=== PATIENT | female | born 1980 | race Caucasian/White ===

== ENCOUNTER 2016-09-20 23:06 | Inpatient (IN) | payer MEDICAID, OTHER ==
--- NOTE | 2016-09-20 23:10 | ED Physician Chart ---
Chief Complaint/HPI - Patient Information Date Seen:: 09/20/16 Time Seen:: 23:09 Chief Complaint:: abdominal pain History of Present Illness:: 36-year-old female, otherwise healthy complains of acute, constant, worsening, severe, 10 out of 10, cramping and sharp, radiating to the back, epigastric and upper abdominal pain since about 11 AM this morning. Said pain started off as burning sensation is now moved to sharp and cramping. Has associated nausea but no vomiting. Allergies:: Allergies Allergy/AdvReac Type Severity Reaction Status Date / Time MDX No Known Allergies - Nka Allergy Verified 06/22/14 22:35 [No Known Allergies - Nka] Historian:: Patient Review:: Nurse's Note Reviewed Review of Systems - Review of Systems Other: Complete system review otherwise unremarkable except as noted in history of present illness. Past Medical History - Past Medical History Past Medical History: No significant medical hx Family History: None Social History: Non Smoker, No Alcohol, No Drug Use, Employed Surgical History: Appendectomy, Psychiatricy History: None Medication: None Family Medical History - Family Member Mother Ethnicity: Living Status: Still Living Hx Family Cancer: No Hx Family Coronary Artery Disease: No Hx Family Congestive Heart Failure: No Hx Family Hypertension: Yes Hx Family Stroke: No Hx Family Diabetes: No Hx Family Seizures: No Hx Family Dementia: No Hx Family AIDS: No Hx Family HIV: No Hx Family COPD: No Hx Family Hepatitis: No Hx Family Psychiatric Problems: No Hx Family Tuberculosis: No Physical Exam - Physical Examination Other:: INITIAL VITAL SIGNS: Reviewed by me GENERAL: Alert and interactive. Moderate distress due to pain HEAD: Head is normocephalic and atraumatic EYES: EOMI. PERRL. No scleral icterus. No conjunctival injection ENT: Moist mucous membranes. NECK: Supple. No masses. Full range of motion RESPIRATORY: No tachypnea. Clear breath sounds bilaterally. No wheezing, rales, or rhonchi CV: Regular rate and rhythm. No murmurs, rubs, or gallops ABDOMEN: Soft, non-distended, tenderness to palpation of the epigastric area with positive Brooks's sign. Guarding on deep palpation. No rebound. No masses. EXTREMITIES: No deformity. No cyanosis. No edema. SKIN: Warm and dry. No obvious rashes. NEUROLOGIC: Alert and oriented. Face is symmetric. Speech is normal. Moves all extremities equally. Motor and sensory distally intact. Labs/Radiology/EKG Results - Lab Results Results: Lab Results 09/20/16 09/20/16 09/20/16 Range/Units 00:00 00:00 23:40 WBC 18.6 H D (4.8-10.8) Th/cmm RBC 5.07 (3.80-5.10) Mil/cmm Hgb 15.1 D (11.7-15.5) gm/dL Hct 43.3 D (35.0-45.0) % MCV 85.4 (81-100) fl MCH 29.9 (27.0-31.0) pg MCHC Differential 34.9 (28.0-36.0) pg RDW 12.4 (11.5-20.0) % Plt Count 303 D (150-400) Th/cmm MPV 7.7 fl Neutrophils % 84.4 H (40.0-80.0) % Lymphocytes % 11.3 L (20.0-50.0) % Monocytes % 3.8 (2.0-10.0) % Eosinophils % 0.5 (0.0-5.0) % Basophils % 0.0 (0.0-2.0) % Sodium (136-145) mEq/L Potassium (3.5-5.1) mEq/L Chloride (98-107) mEq/L Carbon Dioxide (21.0-31.0) mEq/L Anion Gap (7.0-16.0) BUN (7-25) mg/dL Creatinine (0.6-1.2) mg/dL Est GFR ( Amer) (>90) ml/min Est GFR (Non-Af Amer) ml/min BUN/Creatinine Ratio Glucose (70-105) mg/dL Whole Bld Lactic Acid (0.60-1.99) mmol/L Calcium (8.6-10.3) mg/dL Total Bilirubin (0.3-1.0) mg/dL AST (13-39) U/L ALT (7-52) U/L Alkaline Phosphatase (34-104) U/L Total Protein (6.0-8.3) gm/dL Albumin (3.7-5.3) gm/dL Globulin gm/dL Albumin/Globulin Ratio (1.0-1.8) Amylase (29-103) U/L Lipase (11-82) U/L Urine Source CLEAN C Urine Color YELLOW Urine Clarity CLEAR (CLEAR) Urine pH 7.5 Ur Specific [place] 1.015 (1.005-1.030) Urine Protein NEGATIVE (NEGATIVE) mg/dL Urine Glucose (UA) NEGATIVE (NEGATIVE) mg/dL Urine Ketones NEGATIVE (NEGATIVE) mg/dL Urine Blood SMALL H (NEGATIVE) Urine Nitrate NEGATIVE (NEGATIVE) Urine Bilirubin NEGATIVE (NEGATIVE) Urine Urobilinogen 0.2 (0.2 - 1.0) E.U./dL Ur Leukocyte Esterase NEGATIVE (NEGATIVE) Urine RBC 2-5 (0-5) /hpf Urine WBC 0-2 (0-5) /hpf Ur Epithelial Cells FEW (FEW) /lpf Urine Bacteria OCCASIONAL (NONE SEEN) /hpf Urine Test NEGATIVE 09/20/16 09/20/16 Range/Units 23:40 23:40 WBC (4.8-10.8) Th/cmm RBC (3.80-5.10) Mil/cmm Hgb (11.7-15.5) gm/dL Hct (35.0-45.0) % MCV (81-100) fl MCH (27.0-31.0) pg MCHC Differential (28.0-36.0) pg RDW (11.5-20.0) % Plt Count (150-400) Th/cmm MPV fl Neutrophils % (40.0-80.0) % Lymphocytes % (20.0-50.0) % Monocytes % (2.0-10.0) % Eosinophils % (0.0-5.0) % Basophils % (0.0-2.0) % Sodium 136 (136-145) mEq/L Potassium 3.7 (3.5-5.1) mEq/L Chloride 103 (98-107) mEq/L Carbon Dioxide 26.7 (21.0-31.0) mEq/L Anion Gap 10.0 (7.0-16.0) BUN 10 (7-25) mg/dL Creatinine 0.9 (0.6-1.2) mg/dL Est GFR ( Amer) > 60.0 (>90) ml/min Est GFR (Non-Af Amer) > 60.0 ml/min BUN/Creatinine Ratio 11.1 Glucose 121 H (70-105) mg/dL Whole Bld Lactic Acid 1.48 (0.60-1.99) mmol/L Calcium 9.8 (8.6-10.3) mg/dL Total Bilirubin 0.6 (0.3-1.0) mg/dL AST 18 (13-39) U/L ALT 17 (7-52) U/L Alkaline Phosphatase 72 (34-104) U/L Total Protein 8.4 H (6.0-8.3) gm/dL Albumin 4.6 (3.7-5.3) gm/dL Globulin 3.8 gm/dL Albumin/Globulin Ratio 1.2 (1.0-1.8) Amylase 51 (29-103) U/L Lipase 37 (11-82) U/L Urine Source Urine Color Urine Clarity (CLEAR) Urine pH Ur Specific [place] (1.005-1.030) Urine Protein (NEGATIVE) mg/dL Urine Glucose (UA) (NEGATIVE) mg/dL Urine Ketones (NEGATIVE) mg/dL Urine Blood (NEGATIVE) Urine Nitrate (NEGATIVE) Urine Bilirubin (NEGATIVE) Urine Urobilinogen (0.2 - 1.0) E.U./dL Ur Leukocyte Esterase (NEGATIVE) Urine RBC (0-5) /hpf Urine WBC (0-5) /hpf Ur Epithelial Cells (FEW) /lpf Urine Bacteria (NONE SEEN) /hpf Urine Test - Radiology Results Results: Ultrasound abdomen present report per radiology Enlarged mobile stones and agrees with diffuse tenderness over the gallbladder Gallbladder wall 0.51 cm; thickened CT scan abdomen and pelvis preliminary report per radiology Gallstones - EKG Interpretations Comments:: 12-lead EKG Interpretation by Song Yan MD: Sinus tachycardia with ventricular rate of 117 beats per minute Normal axis Normal intervals No acute ST or T wave changes. No obvious STEMI ED Septic Shock - . Is Septic Shock (SBP<90, OR Lactate>4 mmol\L) present?: No Reassessment (Disposition) - Reassessment Reassessment:: Patient appears to have acute abdominal pain due to acute cholecystitis. Thickened gallbladder wall on ultrasound. Leukocytosis of 18.6. IV Zosyn. Also gave IV antiemetics IV analgesics and IV fluids. Discussed case with the admitting physician who will admit the patient for workup and treatment. Reassessment Condition:: Improved - Diagnosis Diagnosis:: Acute abdominal pain due to acute cholecystitis - Patient Disposition Discharge/Transfer:: Acute Care w/in this hosp Admitted to:: Med/Surg Admitting Medical Physician:: Demetrius Valencia Time:: 01:00 Condition at Disposition:: Stable
[2016-09-20] MEDS ORDERED: Sodium Chloride 0.9% 1,000 ML IV ONE ×2 (23:21→23:48)
[2016-09-20] MEDS ORDERED: Donnatal Liq 5 ML UDC PO ONE (23:21)
[2016-09-20] MEDS ORDERED: Maalox 30 mL Cup PO ONE (23:21)
[2016-09-20] MEDS ORDERED: Prochlorperazine 5 mg/mL 2mL Vial IVP STA (23:22)
[2016-09-20] MEDS ORDERED: Maalox 30 mL Cup ONE (23:48)
[2016-09-20] MEDS ORDERED: Prochlorperazine 5 mg/mL 2mL Vial ONE (23:48)
[2016-09-20] MEDS ORDERED: Donnatal Liq 5 ML UDC ONE (23:50)
[2016-09-21 00:04] LABS: % EOSINOPHILS 0.5 % (0.0-5.0); % LYMPHOCYTES 11.3 % (20.0-50.0); % MONOCYTES 3.8 % (2.0-10.0); % NEUTROPHILS 84.4 % (40.0-80.0); MEAN CELL VOLUME 85.4 fl (81-100); MEAN CORPUSCULAR HEMOGLOBIN 29.9 pg (27.0-31.0); MEAN CORPUSCULAR HGB CONC 34.9 pg (28.0-36.0); MEAN PLATELET VOLUME 7.7 fl; NEUTROPHILE ABSOLUTE 15.7 Th/cmm (1.8-8.0); RED BLOOD COUNT 5.07 Mil/cmm (3.80-5.10); RED CELL DISTRIBUTION WIDTH 12.4 % (11.5-20.0)
[2016-09-21 00:10] LABS: WHITE BLOOD COUNT 18.6 Th/cmm (4.8-10.8)
[2016-09-21 00:20] LABS: ALB/GLOB RATIO 1.2 (1.0-1.8); ALKALINE PHOSPHATASE 72 U/L (34-104); AMYLASE SERUM 51 U/L (29-103); BILIRUBIN,TOTAL 0.6 mg/dL (0.3-1.0); BUN - UREA NITROGEN 10 mg/dL (7-25); BUN/CREATININE RATIO 11.1; CALCIUM SERUM 9.8 mg/dL (8.6-10.3); CARBON DIOXIDE 26.7 mEq/L (21.0-31.0); CHLORIDE 103 mEq/L (98-107); CREATININE - SERUM 0.9 mg/dL (0.6-1.2); GLUCOSE 121 mg/dL (70-105); LIPASE 37 U/L (11-82); POTASSIUM SERUM 3.7 mEq/L (3.5-5.1); SGOT 18 U/L (13-39); SGPT/ALT 17 U/L (7-52); SODIUM SERUM 136 mEq/L (136-145)
[2016-09-21 00:26] LABS: URINE BILIRUBIN NEGATIVE (NEGATIVE); URINE BLOOD SMALL (NEGATIVE); URINE COLOR YELLOW; URINE GLUCOSE (UA) NEGATIVE (NEGATIVE); URINE KETONE NEGATIVE (NEGATIVE); URINE PH 7.5; URINE PROTEIN NEGATIVE (NEGATIVE)
[2016-09-21 00:27] LABS: URINE BACTERIA OCCASIONAL /hpf (NONE SEEN); URINE EPITHELIAL CELLS FEW /lpf (FEW); URINE UROBILINOGEN 0.2 E.U./dL (0.2 - 1.0); URINE WBC 0-2 /hpf (0-5)
[2016-09-21 00:42] LABS: HEMATOCRIT 43.3 % (35.0-45.0); HEMOGLOBIN 15.1 gm/dL (11.7-15.5)
[2016-09-21 00:43] LABS: PLATELET COUNT 303 Th/cmm (150-400)
[2016-09-21] MEDS ORDERED: Morphine Sulfate 4 mg/mL 1mL Syr IVP STA (00:51)
[2016-09-21] MEDS ORDERED: Morphine Sulfate 4 mg/mL 1mL Syr ONE (00:54)
--- NOTE | 2016-09-21 02:29 | Admit Criteria Form ---
Admit Criteria Forms - Admit Criteria Diagnosis: ABDOMINAL PAIN Clinical Indications for Admission to Inpatient Care (Place 'X' for any and all applicable criteria): Admission is indicated for ANY ONE of the following(1)(2)(3)(4)(5): [X ]I. Inpatient admission required rather than observation care (Also use Abdominal Pain: Observation Care, as appropriate) because of ANY ONE of the following: [ ]a) Severe pain requiring acute inpatient management [X ]b) Identification of etiology/finding that requires inpatient care (eg, aortic dissection, free air) [ ]c) Absent bowel sounds with complete ileus(6) [ ]d) Suspected toxic megacolon [ ]e) Severe electrolyte abnormalities requiring inpatient care [ ]f) High fever or infection requiring inpatient admission as indicated by ANY ONE of following(7)(8): [ ] i) Appropriate outpatient or observational care antimicrobial treatment unavailable, not effective, or not feasible [ ] ii) Documented bacteremia [ ] iii) Temperature > 104.9 degrees F (oral) [ ] iv) T >103.1 F (oral) or < 96.8 F(rectal) that does not respond to all emergency treatment measures [ ]g) Signs of intestinal obstruction [B] [ ]h) Hemodynamic instability [ ]i) IV fluid to replace significant ongoing losses (greater than 3 L/m2 per day) (12)(13) [ ]j) Percutaneous or open drainage (eg, abscess, biliary tract ) procedures [ ]k) Parenteral nutrition regimen that must be implemented on inpatient basis [ ]l) Other condition,treatment or monitoring requiring inpatient admission. [ ]II. Peritoneal signs present [ ]III. Surgery needed that cannot be performed on an ambulatory basis. [ ]IV. Evaluation requires patient to not eat or drink for extended period ( eg, more than 24 hours). [ ]V. Contraindications and/or Inappropriate clinical situations for Observational Care in patients with abdominal pain, when ANY ONE of the following is required: [ ]a) Thorough evaluation is required to prevent catastrophic events due to delays in diagnosing (e.g.Mesenteric ischemia) 1,3 [ ]b) Patient with severe pathology or with chronic symptoms unlikely to improve in the ED stay (3) [ ]. General contraindications and/or Inappropriate clinical situations for Observational Care in patients with abdominal pain, when ANY ONE of the following is required: [ ]a) Prediction of prolongation of LOS based on ANY ONE of the following may be considered as a contraindication for observational care 2, 3, 4, 5, 6, 7, 8, 9, 10, 11 [ ]i) Age > 65 yrs. [ ]ii) Patient arriving by ambulance [ ]iii) Patient with high acuity [ ]iv) Patient requiring vital sign monitoring [ ]v) Patient on IV medication [ ]b) Systolic blood pressures 180mmHg 3,12 [ ]c) Patient with altered mental status including delirium and other alteration of consciousness, (3) [ ]d) Patient whose discharge disposition will be to a [facility] home or rehabilitation home should not be managed in Emergency Department Observation Unit. CMS rule requires 3 days hospital stay before such placement.3,13 [ ]e) Patient with failure to thrive due to broad array of etiologies 3,16,17 [ ]f) Inability to ambulate 3,14 Extended stay beyond goal length of stay may be needed for(2)(3): [ ]a) Persistent abdominal pain with suspected intra-abdominal process [ ]b) Diagnosed condition requiring continued stay (e.g., pancreatitis, complicated diverticulitis) [ ]c) Surgery (e.g., colectomy) The original [facility] [employer] content created by [email or web address] has been revised. The portions of the content which have been revised are identified through the use of italic text or in bold, and [facility] has neither reviewed nor approved the modified material.All other unmodified content is copyright [facility]. Please see references footnoted in the original [facility] edition 2016 Admit Criteria Met?: Yes
[2016-09-21] MEDS: D5-0.45NS 1,000 ML IV SCH (03:26)
[2016-09-21 04:23] VITALS: BP 112/69
[2016-09-21] MEDS: Ampicillin Sodium/Sulbactam 3 GM in Sodium Chloride 0.9% 100 ML IV SCH ×4 (05:51→23:58)
[2016-09-21] MEDS: HYDROmorphone 2 mg/mL 1mL Vial IVP PRN ×3 (08:08→20:40)
--- NOTE | 2016-09-21 10:11 | Diagnostic Imaging Report ---
CHEST X-RAY: AP view INDICATION: Shortness of breath COMPARISON: 10/10/2014 FINDINGS: There is no focal consolidation or pleural effusions The heart is normal in size. The osseous structures demonstrate no acute abnormalities. IMPRESSION: No acute cardiopulmonary disease.
[2016-09-21 10:25] LABS: INR 1.02 (0.5-1.4); PROTHROMBIN TIME (TEST) 10.6 SECONDS (9.5-11.5)
[2016-09-21] MEDS ORDERED: Influenza Vaccine 0.5 mL Syr IM ONE (10:29)
[2016-09-21] MEDS ORDERED: Pneumococcal Vaccine 0.5 mL Vial IM ONE (10:29)
--- NOTE | 2016-09-21 10:44 | Diagnostic Imaging Report ---
CT abdomen and pelvis without intravenous contrast Indication: Epigastric pain Comparison: Right upper quadrant ultrasound performed the same day, Technique: Axial images were obtained from the lung bases to the bilateral proximal femurs without IV contrast. Coronal reconstructions were made. total DLP: 627, CTDI12.3 FINDINGS: Hypoventilatory changes of the lung bases are noted. Assessment of solid organs is limited due to lack of IV contrast. The liver is mildly prominent with fatty infiltration. No evidence of focal lesions. The gallbladder is contracted. No focal splenic, pancreatic or adrenal lesions. No evidence of hydronephrosis or nephrolithiasis. Prominent endometrial cavity is noted. Moderate stool is seen throughout the colon. Appendix is not well-visualized. A small fat-containing umbilical hernia is noted. The osseous structures demonstrate no acute abnormalities. There may be mild spinal scoliosis. IMPRESSION: Contracted gallbladder limiting its evaluation. Please refer to ultrasound the same day for further findings Moderate stool throughout the colon. Appendix is not visualized, however, there are no secondary signs to suggest acute process. Prominent endometrial cavity. Please correlate with menstrual cycle. Consider short-term follow-up ultrasound Small fat-containing umbilical hernia. Mild hepatomegaly with hepatic steatosis.
--- NOTE | 2016-09-21 10:46 | Diagnostic Imaging Report ---
Right upper quadrant ultrasound, limited History: Epigastric pain Comparison: Prior abdominal ultrasound on 10/10/2014 Technique: Sonography right upper quadrant was performed in multiple planes. Findings: The liver is enlarged measuring 21.3 cm. The liver demonstrates increased echogenicity. The liver margins are not well-defined, however, no obvious focal lesions. Multiple gallstones are seen with gallbladder wall thickening measuring up to 5 mm. The common bile duct measures 5.5 mm. IMPRESSION: Multiple gallstones and gallbladder wall thickening. Please correlate clinically. If there is clinical concern for acute cholecystitis, follow-up exam such as nuclear medicine HIDA scan may be obtained for further assessment. The common bile duct measures 5.5 mm. Hepatomegaly with fatty infiltration.
[2016-09-21] MEDS ORDERED: Bupivacaine 0.5% W/Ep 10 mL Vial ONE ×4 (14:21→14:22)
[2016-09-21] MEDS ORDERED: Midazolam 1mg/ml 2 ml vial IV ONE (14:44)
[2016-09-21] MEDS ORDERED: Meperidine 50 mg/mL 1mL Syr ONE (14:45)
[2016-09-21] MEDS ORDERED: Neostigmine 10mg/10mL Vial ONE (15:23)
--- NOTE | 2016-09-21 15:49 | Consultation ---
REFERRING PHYSICIAN: Dr. Valencia. REASON FOR CONSULTATION: Gallstones. Thank you for referring this patient to me. HISTORY OF PRESENT ILLNESS: This is a 36-year-old female started complaining of severe abdominal pain with nausea and vomiting in the last 24 hours. Pain is epigastric, radiating to the back. PAST MEDICAL HISTORY: Otherwise unremarkable except for the fact that the patient had and appendectomy in the past. ALLERGIES: She has no allergies. MEDICATIONS: She does not take any medication on a regular basis. LABORATORY STUDIES: Showed WBC at 18,600. Chemistry is within normal limits. CT scan of the abdomen shows gallstones as well as on ultrasound. PHYSICAL EXAMINATION: Scar from previous surgery and tenderness in the right upper quadrant. PLAN: We will take to surgery. An informed consent discussed with the patient, the and parents. Complications were discussed likewise. JOB# [id number]
[2016-09-21] MEDS ORDERED: Meperidine 25 mg/mL 1mL Syr IVP PRN (15:55)
[2016-09-21] MEDS ORDERED: Lactated Ringer 1,000 ML IV SCH (16:00)
--- NOTE | 2016-09-21 17:31 | History & Physical ---
PATIENT IDENTIFICATION: The patient is a 36-year-old female. CHIEF COMPLAINT: Abdominal pain. HISTORY OF PRESENT ILLNESS: A 36-year-old [place] female with no significant past medical history, presented to Emergency Room with acute onset of 10/10 upper abdominal pain radiating to the back and associated nausea, but no vomiting. The patient stated her pain was initially burning sensation and now turned to the sharp and cramping. PAST MEDICAL HISTORY: None. MEDICATIONS AT HOME: None. ALLERGIES: None. SOCIAL HISTORY: The patient is a nonsmoker, nonalcohol. The patient is currently employed. FAMILY MEDICAL HISTORY: Remarkable for diabetes. REVIEW OF SYSTEMS: The patient currently denies any headache, blurred vision, double vision, dysphagia, odynophagia, runny nose, stuffy nose, fever, chills. No history of any chest pain, cough, no history of any hematemesis. No history of any hematuria, hematochezia, melena. No seizure or syncopal episode. PHYSICAL EXAMINATION: GENERAL: The patient is alert, awake, oriented, lying in the bed without any acute distress. VITAL SIGNS: Temperature 98.9, pulse is 95, respiratory rate 18, blood pressure 117/71. SKIN: Warm to touch. HEENT: Normocephalic, atraumatic. Extraocular muscles are intact. Tongue was pink and coated. NECK: Supple, no JVD, no hepatojugular reflux. No lymphadenopathy, thyromegaly or carotid bruit. HEART: Both heart sounds are regular. No S3, no S4, no murmur. CHEST: Lung equal in expansion, no wheezing, no crackles. ABDOMEN: Soft. Significant tenderness in the epigastric area noted. Bowel sounds present. No palpable mass. EXTREMITIES: No edema, no cyanosis. NEUROLOGIC: Nonfocal. AVAILABLE DIAGNOSTIC DATA: CT scan remarkable for contracted gallbladder with moderate amount of stool throughout the colon noted. Appendix was not visualized. Abdominal ultrasound is consistent with multiple gallstones and gallbladder wall thickening consistent with acute cholecystitis, common bile duct was 5.5 mm with hepatomegaly and fatty infiltration was reported. Chest x-ray with no infiltrate, no congestion. White count of 18.6, hemoglobin 15.1, platelet count 303. PT and PTT are normal. BUN and creatinine is normal. Glucose of 121. Urinalysis negative. CLINICAL IMPRESSION: 1. Acute cholecystitis and cholelithiasis. 2. Obesity. PLAN: 1. Admit this patient to Med/Surg floor. 2. Keep n.p.o. 3. IV fluid. 4. IV antibiotic. 5. Pain management. 6. GI and General Surgery consultation. 7. Proton pump inhibitor. 8. Symptoms management. 9. Follow lab. 10. Follow consult recommendation. 11. Care plan reviewed and discussed with staff. JOB# [id number]
--- NOTE | 2016-09-21 21:10 | Operative Report ---
PREOPERATIVE DIAGNOSIS: Acute calculous cholecystitis. POSTOPERATIVE DIAGNOSIS: Acute calculous cholecystitis. OPERATION DONE: Laparoscopic cholecystectomy. SURGEON: Jaron Mccormick M.D. ANESTHESIA: General anesthesia. ANESTHESIOLOGIST: Ilene Crabtree M.D. ESTIMATED BLOOD LOSS: 10 mL. OPERATIVE FINDINGS: Inflamed gallbladder. The anatomy was well delineated. PREVIOUS SURGERY: and appendectomy. Informed consent discussed with the patient and family prior to surgery and including possible complications. DESCRIPTION OF PROCEDURE: The patient was given general anesthesia. The abdomen was prepped with ChloraPrep and draped in appropriate manner. An infraumbilical incision was made along the skin line. A Veress needle was inserted. Insufflation of CO2 was carried successfully. A 10-mm trocar was placed through this endoscope was introduced. There was good visualization of the intra-abdominal cavity. Another 10-mm trocar was placed in the upper abdomen at the midline and two 5-mm trocars were placed in the right flank. The operating table was elevated to head and turned to the left side. The fundus and infundibulum of the gallbladder was grasped and blunt dissection was carried out with well identification of the cystic duct structures. Cystic duct was clipped 3 times close to the common duct and once to the gallbladder infundibulum and transected. The cystic artery was next identified, clipped and divided. Cautery dissection was carried out superiorly until the gallbladder was finally removed. This was removed in Endobag. Irrigation with saline solution was carried out and there was good hemostasis. All fluid and air was aspirated. Incision was closed with coni following infiltration with 0.5% Marcaine. JOB# [id number]
[2016-09-22] MEDS: HYDROmorphone 2 mg/mL 1mL Vial IVP PRN (00:10)
--- NOTE | 2016-09-22 02:06 | Consultation ---
INPATIENT GASTROINTESTINAL CONSULTATION REFERRING PHYSICIAN: Dr. Valencia. REASON FOR CONSULTATION: Gallstones. HISTORY OF PRESENT ILLNESS: This is a 36-year-old female who developed 1-day onset of right upper quadrant pain associated with nausea, but no vomiting, denies diarrhea or constipation, therefore came to the hospital and was found to have gallstones. PAST MEDICAL HISTORY: None. PAST SURGICAL HISTORY: Appendectomy and . FAMILY HISTORY: Noncontributory. SOCIAL HISTORY: Denies tobacco, alcohol, or IV drug usage. ALLERGIES: None. CURRENT MEDICATIONS: Tylenol, ampicillin, Dilaudid, Zofran, and Protonix. REVIEW OF SYSTEMS: A 10-point review of systems was performed. The pertinent positive is right upper quadrant pain and nausea. All other systems were otherwise negative. PHYSICAL EXAMINATION: VITAL SIGNS: Temperature 100.2, breathing 19, pulse of 131, blood pressure 100/62, and satting 94%. GENERAL: In no apparent distress. HEENT: EYES: Anicteric, normal conjunctivae. Head is normocephalic and atraumatic. Moist mucous membranes. NECK: Soft, supple. CHEST: Clear effort. CARDIOVASCULAR: Regular rate and rhythm. ABDOMEN: Soft, nondistended, tender right upper quadrant. No rebound or guarding. SKIN: Warm and dry. EXTREMITIES: Reveal no cyanosis. PSYCHOLOGIC: Alert and oriented x 3. LABORATORY DATA: Show white count , hemoglobin 15.1, and platelets of 303,000. INR is 1.02. Total bilirubin 0.6, AST 18, ALT 17, alkaline phosphatase 72. Lipase is 37. test was negative. Abdominal ultrasound showed multiple gallstones within the gallbladder wall thickening, common bile duct measured 5.[address] abdomen and pelvis showed a contracted gallbladder. IMPRESSION: This is a 36-year-old female with gallstones, normal LFTs, likely has symptomatic gallstones or even cholecystitis, no signs of cholestasis by laboratory testing. PLAN: 1. Consider HIDA scan. 2. Cholecystectomy per Surgeon. 3. Continue antibiotics and supportive care. Thank you for allowing me to participate. Please call me if any questions. JOB# [id number]
[2016-09-22] MEDS: Ampicillin Sodium/Sulbactam 3 GM in Sodium Chloride 0.9% 100 ML IV SCH ×2 (05:18→11:39)
[2016-09-22 07:16] LABS: MEAN CELL VOLUME 87.1 fl (81-100); MEAN CORPUSCULAR HEMOGLOBIN 29.5 pg (27.0-31.0); MEAN CORPUSCULAR HGB CONC 33.9 pg (28.0-36.0); MEAN PLATELET VOLUME 7.8 fl; PLATELET COUNT 282 Th/cmm (150-400); RED BLOOD COUNT 4.44 Mil/cmm (3.80-5.10); RED CELL DISTRIBUTION WIDTH 12.7 % (11.5-20.0)
[2016-09-22 07:29] LABS: ALKALINE PHOSPHATASE 66 U/L (34-104); ANION GAP 8.2 (7.0-16.0); BILIRUBIN,DIRECT 0.18 mg/dL (0.0-0.2); BILIRUBIN,TOTAL 0.7 mg/dL (0.3-1.0); BUN - UREA NITROGEN 6 mg/dL (7-25); BUN/CREATININE RATIO 8.6; CARBON DIOXIDE 29.8 mEq/L (21.0-31.0); CHLORIDE 96 mEq/L (98-107); CREATININE - SERUM 0.7 mg/dL (0.6-1.2); GLUCOSE 117 mg/dL (70-105); SGOT 32 U/L (13-39); SGPT/ALT 24 U/L (7-52); SODIUM SERUM 130 mEq/L (136-145)
[2016-09-22 08:19] LABS: HEMATOCRIT 38.6 % (35.0-45.0); HEMOGLOBIN 13.1 gm/dL (11.7-15.5); WHITE BLOOD COUNT 21.7 Th/cmm (4.8-10.8)
[2016-09-22 08:44] LABS: BAND NEUTROPHILE 8 % (0-10); NEUTROPHILS 82 % (40-80); TOTAL CELLS COUNTED 100
[2016-09-22 08:45] LABS: PLATELET ESTIMATE ADEQUATE (NORMAL); PLATELET MORPHOLOGY PLATELET CLUMPS SEEN (NORMAL)
--- NOTE | 2016-09-22 11:15 | General Progress Note ---
Subjective - Review of Systems Events since last encounter: has leukocytosis and low grade fever LFT normal complains of pain and nausea Objective - Results Result Diagrams: 09/22/16 06:10 09/22/16 06:10 Recent Labs: Laboratory Last Values WBC 21.7 Th/cmm (4.8-10.8) H* 09/22/16 06:10 RBC 4.44 Mil/cmm (3.80-5.10) 09/22/16 06:10 Hgb 13.1 gm/dL (11.7-15.5) D 09/22/16 06:10 Hct 38.6 % (35.0-45.0) D 09/22/16 06:10 MCV 87.1 fl (81-100) 09/22/16 06:10 MCH 29.5 pg (27.0-31.0) 09/22/16 06:10 MCHC Differential 33.9 pg (28.0-36.0) 09/22/16 06:10 RDW 12.7 % (11.5-20.0) 09/22/16 06:10 Plt Count 282 Th/cmm (150-400) 09/22/16 06:10 MPV 7.8 fl 09/22/16 06:10 Neutrophils % 84.4 % (40.0-80.0) H 09/20/16 23:40 Band Neutrophils % 8 % (0-10) 09/22/16 06:10 Lymphocytes % 11.3 % (20.0-50.0) L 09/20/16 23:40 Monocytes % 3.8 % (2.0-10.0) 09/20/16 23:40 Eosinophils % 0.5 % (0.0-5.0) 09/20/16 23:40 Basophils % 0.0 % (0.0-2.0) 09/20/16 23:40 Neutrophils (Manual) 82 % (40-80) H 09/22/16 06:10 Lymphocytes 5 % (20-50) L 09/22/16 06:10 Monocytes 5 % (2-10) 09/22/16 06:10 Platelet Estimate ADEQUATE (NORMAL) 09/22/16 06:10 Platelet Morphology PLATELET CLUMPS SEEN (NORMAL) 09/22/16 06:10 RBC Morph Micro Appear NORMAL (NORMAL) 09/22/16 06:10 PT 10.6 SECONDS (9.5-11.5) 09/21/16 09:55 INR 1.02 (0.5-1.4) 09/21/16 09:55 PTT (Actin FS) 23.8 SECONDS (26.0-38.0) L 09/21/16 09:55 Sodium 130 mEq/L (136-145) L 09/22/16 06:10 Potassium 4.0 mEq/L (3.5-5.1) 09/22/16 06:10 Chloride 96 mEq/L (98-107) L 09/22/16 06:10 Carbon Dioxide 29.8 mEq/L (21.0-31.0) 09/22/16 06:10 Anion Gap 8.2 (7.0-16.0) 09/22/16 06:10 BUN 6 mg/dL (7-25) L 09/22/16 06:10 Creatinine 0.7 mg/dL (0.6-1.2) 09/22/16 06:10 Est GFR ( Amer) > 60.0 ml/min (>90) 09/22/16 06:10 Est GFR (Non-Af Amer) > 60.0 ml/min 09/22/16 06:10 BUN/Creatinine Ratio 8.6 09/22/16 06:10 Glucose 117 mg/dL (70-105) H 09/22/16 06:10 Whole Bld Lactic Acid 1.48 mmol/L (0.60-1.99) 09/20/16 23:40 Calcium 9.0 mg/dL (8.6-10.3) 09/22/16 06:10 Total Bilirubin 0.7 mg/dL (0.3-1.0) 09/22/16 06:10 Direct Bilirubin 0.18 mg/dL (0.0-0.2) 09/22/16 06:10 AST 32 U/L (13-39) 09/22/16 06:10 ALT 24 U/L (7-52) 09/22/16 06:10 Alkaline Phosphatase 66 U/L (34-104) 09/22/16 06:10 Total Protein 7.7 gm/dL (6.0-8.3) 09/22/16 06:10 Albumin 3.9 gm/dL (3.7-5.3) 09/22/16 06:10 Globulin 3.8 gm/dL 09/22/16 06:10 Albumin/Globulin Ratio 1.0 (1.0-1.8) 09/22/16 06:10 Amylase 51 U/L (29-103) 09/20/16 23:40 Lipase 37 U/L (11-82) 09/20/16 23:40 Serum , Qual NEGATIVE (NEGATIVE) 09/20/16 23:40 Urine Source CLEAN C 09/20/16 00:00 Urine Color YELLOW 09/20/16 00:00 Urine Clarity CLEAR (CLEAR) 09/20/16 00:00 Urine pH 7.5 09/20/16 00:00 Ur Specific [place] 1.015 (1.005-1.030) 09/20/16 00:00 Urine Protein NEGATIVE mg/dL (NEGATIVE) 09/20/16 00:00 Urine Glucose (UA) NEGATIVE mg/dL (NEGATIVE) 09/20/16 00:00 Urine Ketones NEGATIVE mg/dL (NEGATIVE) 09/20/16 00:00 Urine Blood SMALL (NEGATIVE) H 09/20/16 00:00 Urine Nitrate NEGATIVE (NEGATIVE) 09/20/16 00:00 Urine Bilirubin NEGATIVE (NEGATIVE) 09/20/16 00:00 Urine Urobilinogen 0.2 E.U./dL (0.2 - 1.0) 09/20/16 00:00 Ur Leukocyte Esterase NEGATIVE (NEGATIVE) 09/20/16 00:00 Urine RBC 2-5 /hpf (0-5) 09/20/16 00:00 Urine WBC 0-2 /hpf (0-5) 09/20/16 00:00 Ur Epithelial Cells FEW /lpf (FEW) 09/20/16 00:00 Urine Bacteria OCCASIONAL /hpf (NONE SEEN) 09/20/16 00:00 Urine Test NEGATIVE 09/20/16 00:00 - Physical Exam Vitals and I&O: Vital Signs Temp 101.3 F 09/22/16 08:00 Pulse 129 09/22/16 08:00 Resp 19 09/22/16 08:00 BP 113/67 09/22/16 08:00 Pulse Ox 97 09/22/16 08:00 Intake & Output 09/21/16 09/22/16 09/22/16 18:59 06:59 18:59 Intake Total 920 100 Balance 920 100 Intake: Intake, IV Amount 200 100 Ampicillin Sodium/ 200 100 Sulbactam 3 gm In Sodium Chloride 0.9% 100 ml @ 100 mls/hr IV Q6HR [facility] Rx #:[id number] Oral 720 Other: # Voids 3 # Bowel Movements 0 Stool Characteristics Soft Soft Soft Formed Formed Formed Active Medications: Current Medications Acetaminophen (Tylenol) 650 mg PO Q6H PRN PRN Reason: Pain (Mild) Stop: 11/21/16 05:53 Hydromorphone HCl (Dilaudid) 2 mg IVP Q3HR PRN PRN Reason: Pain (Severe) Stop: 11/20/16 01:23 Last Admin: 09/22/16 00:10 Dose: 2 mg Dextrose/Sodium Chloride (D5-0.45ns) 1,000 mls @ 125 mls/hr IV .Q8H [facility] Stop: 11/20/16 01:29 Last Admin: 09/21/16 03:26 Dose: 125 mls/hr Ampicillin Sodium/Sulbactam (Sodium 3 gm/ Sodium Chloride) 100 mls @ 100 mls/ hr IV Q6HR [facility] Stop: 11/20/16 05:59 Last Admin: 09/22/16 05:18 Dose: 100 mls/hr Lactated Ringer's (Lactated Ringer) 1,000 mls @ 0 mls/hr IV .Q0M ANDRAE PRN Reason: TKO Stop: 09/22/16 15:59 Meperidine HCl (Demerol) 12.5 mg IVP UD PRN PRN Reason: POST-OP PAIN Stop: 09/22/16 15:54 Ondansetron HCl (Zofran) 4 mg IV Q6H PRN PRN Reason: Nausea / Vomiting Stop: 11/20/16 01:23 Last Admin: 09/22/16 07:43 Dose: 4 mg Ondansetron HCl (Zofran) 4 mg IV UD PRN PRN Reason: Nausea / Vomiting Stop: 11/20/16 15:54 Pantoprazole Sodium (Protonix) 40 mg IVP DAILY [facility] Stop: 11/20/16 08:59 Last Admin: 09/22/16 08:46 Dose: 40 mg - Procedures Procedures: Procedures Procedure Code Date APPENDECTOMY 60943 01/09/09 OTHER APPENDECTOMY 47.09 01/09/09 Assessment/Plan - Problem List Patient Problems: All Active Problems Acute bronchitis (Acute) J20.9 Cough (Acute) R05 Fever (Acute) R50.9
[2016-09-22] MEDS ORDERED: Gentamicin 280 MG in Sodium Chloride 0.9% 100 ML IV SCH (11:45)
[2016-09-22] MEDS: Morphine 10 mg/5 ml 5mL UDC PO PRN ×3 (12:13→22:23)
--- NOTE | 2016-09-22 16:23 | Consultation ---
Consult Note - Consult Note Service Date: 09/22/16 Consult Note: [id number]
--- NOTE | 2016-09-23 04:21 | Consultation ---
INFECTIOUS DISEASE CONSULTATION REFERRING PHYSICIAN: Demetrius Valencia M.D. REASON FOR CONSULTATION: Cholecystitis and worsening of leukocytosis. HISTORY OF PRESENT ILLNESS: The patient is a 36-year-old female with no significant past medical history, presented to the ER for acute onset of upper abdominal pain radiating to back associated with nausea. The patient denies any vomiting. The patient had burning sensation in beginning, change to cramping abdominal pain. On initial evaluation, the patient's temperature was 102.3 degrees Fahrenheit and WBC count was 18,600. The patient was diagnosed with acute cholecystitis and laparoscopic cholecystectomy performed yesterday 09/21/[address] Mccormick. The patient continues to have fever and WBC count went up to 21,000. ID consult was called for further antibiotic management. Meanwhile, the patient still complained of one of laparoscopic wounds on right lateral aspect. The patient continued to have fever also. Meanwhile, the patient was already started on Unasyn and gentamicin. Blood cultures were negative. PAST MEDICAL HISTORY: Non-significant. ALLERGIES: NKDA. MEDICATIONS: As per medication reconciliation sheet. Antibiotic andrade, the patient is on Unasyn and gentamicin. SOCIAL HISTORY: The patient lives at home. Denies any smoking, alcohol, or drug use. FAMILY HISTORY: Diabetes mellitus. REVIEW OF SYSTEMS: GENERAL: The patient has fever. No generalized weakness. HEENT: The patient denies any diplopia or photophobia or sore throat. The patient has frontal headache and stuffy nose. RESPIRATORY: The patient denies any cough or shortness of breath. CVS: The patient denies chest pain or palpitation. GI: The patient denies any nausea or vomiting. The patient has pain in one of the four laparoscopic wounds, placed laterally on the right side. No diarrhea and no constipation. GENITOURINARY: No dysuria. No hematuria. NEUROLOGICAL: The patient has some frontal headache. No dizziness and no focal weakness. PHYSICAL EXAMINATION: VITAL SIGNS: Current vital signs show temperature is 99 degrees Fahrenheit, T-max is 101.3 degrees Fahrenheit, pulse, pulse is 100, respirations 17, blood pressure 123/60. GENERAL: The patient is comfortable lying in the bed, not in acute distress. Overweight. HEENT: Head is normocephalic and atraumatic. Oral cavity is moist, pink tongue. Eyes: No pallor, no icterus. PERRLA. EOMI. NECK: Supple. No JVD. No carotid bruit. Trachea in midline. CHEST: Bilateral breath sounds. No crackles, wheezing. CARDIOVASCULAR: S1, S2 within normal limits. Regular rhythm. No murmur. No gallop. ABDOMEN: Soft. No rigidity, but the patient has mild tenderness in the right lateral and right upper quadrant. Bowel sounds are present. EXTREMITIES: No cyanosis, no clubbing, and no edema. NEUROLOGIC: Alert, awake, and oriented x 3. LABORATORY DATA: Current lab shows WBC count is 21,700, hemoglobin 13.1, hematocrit 38.6, and platelets are 282,000, neutrophils 82%. Sodium is 130, potassium 4, chloride 96, bicarbonate 29.8, BUN 6, creatinine 0.7, and glucose is 117. Blood culture 2 sets are negative. Methicillin-resistant Staphylococcus aureus screen is negative. CT scan of the abdomen and pelvis showed contracted gallbladder. Suspect cholecystitis. The chest x-ray was negative. Ultrasound of the abdomen, multiple gallstones and gallbladder wall thickening. IMPRESSION: 1. Sepsis secondary to cholecystitis and peritonitis. 2. Acute cholecystitis with local type peritonitis. 3. Mild overweight. 4. Status post laparoscopic cholecystectomy. RECOMMENDATIONS: We will change antibiotic to Zosyn and follow up CBC and BMP in the morning. Depending on the clinical course, we will define further antibiotic therapy. Thank you, Dr. Valencia, for involving me in taking care of this patient. JOB# [id number] [facility]ITALYasmin
[2016-09-23 05:59] LABS: % BASOPHILS 0.6 % (0.0-2.0); % EOSINOPHILS 0.9 % (0.0-5.0); % LYMPHOCYTES 15.9 % (20.0-50.0); % MONOCYTES 7.5 % (2.0-10.0); % NEUTROPHILS 75.1 % (40.0-80.0); MEAN CELL VOLUME 87.3 fl (81-100); MEAN CORPUSCULAR HEMOGLOBIN 29.9 pg (27.0-31.0); MEAN CORPUSCULAR HGB CONC 34.2 pg (28.0-36.0); MEAN PLATELET VOLUME 7.5 fl; NEUTROPHILE ABSOLUTE 10.2 Th/cmm (1.8-8.0); PLATELET COUNT 282 Th/cmm (150-400); RED BLOOD COUNT 4.01 Mil/cmm (3.80-5.10); RED CELL DISTRIBUTION WIDTH 12.3 % (11.5-20.0)
[2016-09-23 06:16] LABS: WHITE BLOOD COUNT 13.6 Th/cmm (4.8-10.8)
[2016-09-23 06:40] LABS: ALB/GLOB RATIO 1.1 (1.0-1.8); ALKALINE PHOSPHATASE 56 U/L (34-104); ANION GAP 6.9 (7.0-16.0); BILIRUBIN,TOTAL 0.6 mg/dL (0.3-1.0); BUN - UREA NITROGEN 5 mg/dL (7-25); BUN/CREATININE RATIO 7.1; CALCIUM SERUM 8.9 mg/dL (8.6-10.3); CARBON DIOXIDE 27.7 mEq/L (21.0-31.0); CHLORIDE 104 mEq/L (98-107); CREATININE - SERUM 0.7 mg/dL (0.6-1.2); GLUCOSE 110 mg/dL (70-105); POTASSIUM SERUM 3.6 mEq/L (3.5-5.1); SGOT 25 U/L (13-39); SGPT/ALT 23 U/L (7-52); SODIUM SERUM 135 mEq/L (136-145)
[2016-09-23] MEDS: Morphine 10 mg/5 ml 5mL UDC PO PRN (09:49)
[2016-09-23] MEDS: D5-0.45NS 1,000 ML IV SCH (09:54)
--- NOTE | 2016-09-23 13:54 | Pathology Report ---
[id number] Collection Date: 09/21/2016 Surgeon: Dr. Conor Mccormick Specimen Description: Gallbladder Gross Description: Received in formalin is a 7.0 x 2.0 x 1.8 cm gallbladder with a smooth, jolly-degroot outer surface. Opening the gallbladder reveals dark green bile fluid and a gallbladder wall that is 0.2 to 0.3 cm in thickness. The gallbladder mucosa has a velvety, green, intact appearance. A single jolly gallstone is identified measuring 0.4 cm in greatest dimension. Lime Spreader sections are submitted in one cassette. Gross Pathologic Diagnosis: Cholelithiasis, gallbladder. Microscopic Description: The histologic sections show gallbladder wall and mucosa with chronic inflammation present consisting of lymphocytes and plasma cells. Diagnosis: Chronic cholecystitis, gallbladder. [facility]# [id number]
--- NOTE | 2016-09-23 15:14 | General Progress Note ---
Subjective - Review of Systems Service Date: 09/23/16 Events since last encounter: labs OK may DC with oral antibiotics low fat diet for 30 days to my office 1 week Objective - Results Result Diagrams: 09/23/16 05:27 09/23/16 05:27 Recent Labs: Laboratory Last Values WBC 13.6 Th/cmm (4.8-10.8) H D 09/23/16 05:27 RBC 4.01 Mil/cmm (3.80-5.10) 09/23/16 05:27 Hgb 12.0 gm/dL (11.7-15.5) 09/23/16 05:27 Hct 35.0 % (35.0-45.0) 09/23/16 05:27 MCV 87.3 fl (81-100) 09/23/16 05:27 MCH 29.9 pg (27.0-31.0) 09/23/16 05:27 MCHC Differential 34.2 pg (28.0-36.0) 09/23/16 05:27 RDW 12.3 % (11.5-20.0) 09/23/16 05:27 Plt Count 282 Th/cmm (150-400) 09/23/16 05:27 MPV 7.5 fl 09/23/16 05:27 Neutrophils % 75.1 % (40.0-80.0) 09/23/16 05:27 Band Neutrophils % 8 % (0-10) 09/22/16 06:10 Lymphocytes % 15.9 % (20.0-50.0) L 09/23/16 05:27 Monocytes % 7.5 % (2.0-10.0) 09/23/16 05:27 Eosinophils % 0.9 % (0.0-5.0) 09/23/16 05:27 Basophils % 0.6 % (0.0-2.0) 09/23/16 05:27 Neutrophils (Manual) 82 % (40-80) H 09/22/16 06:10 Lymphocytes 5 % (20-50) L 09/22/16 06:10 Monocytes 5 % (2-10) 09/22/16 06:10 Platelet Estimate ADEQUATE (NORMAL) 09/22/16 06:10 Platelet Morphology PLATELET CLUMPS SEEN (NORMAL) 09/22/16 06:10 RBC Morph Micro Appear NORMAL (NORMAL) 09/22/16 06:10 PT 10.6 SECONDS (9.5-11.5) 09/21/16 09:55 INR 1.02 (0.5-1.4) 09/21/16 09:55 PTT (Actin FS) 23.8 SECONDS (26.0-38.0) L 09/21/16 09:55 Sodium 135 mEq/L (136-145) L 09/23/16 05:27 Potassium 3.6 mEq/L (3.5-5.1) 09/23/16 05:27 Chloride 104 mEq/L (98-107) 09/23/16 05:27 Carbon Dioxide 27.7 mEq/L (21.0-31.0) 09/23/16 05:27 Anion Gap 6.9 (7.0-16.0) L 09/23/16 05:27 BUN 5 mg/dL (7-25) L 09/23/16 05:27 Creatinine 0.7 mg/dL (0.6-1.2) 09/23/16 05:27 Est GFR ( Amer) > 60.0 ml/min (>90) 09/23/16 05:27 Est GFR (Non-Af Amer) > 60.0 ml/min 09/23/16 05:27 BUN/Creatinine Ratio 7.1 09/23/16 05:27 Glucose 110 mg/dL (70-105) H 09/23/16 05:27 Whole Bld Lactic Acid 1.48 mmol/L (0.60-1.99) 09/20/16 23:40 Calcium 8.9 mg/dL (8.6-10.3) 09/23/16 05:27 Total Bilirubin 0.6 mg/dL (0.3-1.0) 09/23/16 05:27 Direct Bilirubin 0.18 mg/dL (0.0-0.2) 09/22/16 06:10 AST 25 U/L (13-39) 09/23/16 05:27 ALT 23 U/L (7-52) 09/23/16 05:27 Alkaline Phosphatase 56 U/L (34-104) 09/23/16 05:27 Total Protein 7.2 gm/dL (6.0-8.3) 09/23/16 05:27 Albumin 3.7 gm/dL (3.7-5.3) 09/23/16 05:27 Globulin 3.5 gm/dL 09/23/16 05:27 Albumin/Globulin Ratio 1.1 (1.0-1.8) 09/23/16 05:27 Amylase 51 U/L (29-103) 09/20/16 23:40 Lipase 37 U/L (11-82) 09/20/16 23:40 Serum , Qual NEGATIVE (NEGATIVE) 09/20/16 23:40 Urine Source CLEAN C 09/20/16 00:00 Urine Color YELLOW 09/20/16 00:00 Urine Clarity CLEAR (CLEAR) 09/20/16 00:00 Urine pH 7.5 09/20/16 00:00 Ur Specific [place] 1.015 (1.005-1.030) 09/20/16 00:00 Urine Protein NEGATIVE mg/dL (NEGATIVE) 09/20/16 00:00 Urine Glucose (UA) NEGATIVE mg/dL (NEGATIVE) 09/20/16 00:00 Urine Ketones NEGATIVE mg/dL (NEGATIVE) 09/20/16 00:00 Urine Blood SMALL (NEGATIVE) H 09/20/16 00:00 Urine Nitrate NEGATIVE (NEGATIVE) 09/20/16 00:00 Urine Bilirubin NEGATIVE (NEGATIVE) 09/20/16 00:00 Urine Urobilinogen 0.2 E.U./dL (0.2 - 1.0) 09/20/16 00:00 Ur Leukocyte Esterase NEGATIVE (NEGATIVE) 09/20/16 00:00 Urine RBC 2-5 /hpf (0-5) 09/20/16 00:00 Urine WBC 0-2 /hpf (0-5) 09/20/16 00:00 Ur Epithelial Cells FEW /lpf (FEW) 09/20/16 00:00 Urine Bacteria OCCASIONAL /hpf (NONE SEEN) 09/20/16 00:00 Urine Test NEGATIVE 09/20/16 00:00 - Physical Exam Vitals and I&O: Vital Signs Temp 98.0 F 09/23/16 12:00 Pulse 100 09/23/16 12:00 Resp 17 09/23/16 12:00 BP 113/96 09/23/16 12:00 Pulse Ox 99 09/23/16 12:00 Intake & Output 09/22/16 09/23/1609/23/17 18:59 06:59 18:59 Intake Total 450 200 Balance 450 200 Intake: Intake, IV Amount 200 Piperacillin Sodium/ 200 Tazobact 4.5 gm In Sodium Chloride 0.9% 100 ml @ 100 mls/hr IV Q8HR [facility] Rx #:[id number] Oral 450 Other: # Voids 2 Stool Characteristics Soft Soft Soft Formed Formed Formed Active Medications: Current Medications Acetaminophen (Tylenol) 650 mg PO Q6H PRN PRN Reason: Pain (Mild) Stop: 11/21/16 05:53 Last Admin: 09/23/16 02:14 Dose: 650 mg Dextrose/Sodium Chloride (D5-0.45ns) 1,000 mls @ 125 mls/hr IV .Q8H [facility] Stop: 11/20/16 01:29 Last Admin: 09/23/16 09:54 Dose: 125 mls/hr Piperacillin Sod/Tazobactam (Sod 4.5 gm/ Sodium Chloride) 100 mls @ 100 mls/hr IV Q8HR [facility] Stop: 11/21/16 20:59 Last Admin: 09/23/16 12:03 Dose: 100 mls/hr Morphine Sulfate (Morphine) 2 mg PO Q3H PRN PRN Reason: Abdominal Pain Stop: 11/21/16 11:19 Last Admin: 09/23/16 09:49 Dose: 2 mg Ondansetron HCl (Zofran) 4 mg IV Q6H PRN PRN Reason: Nausea / Vomiting Stop: 11/20/16 01:23 Last Admin: 09/22/16 07:43 Dose: 4 mg Ondansetron HCl (Zofran) 4 mg IV UD PRN PRN Reason: Nausea / Vomiting Stop: 11/20/16 15:54 Pantoprazole Sodium (Protonix) 40 mg IVP DAILY [facility] Stop: 11/20/16 08:59 Last Admin: 09/23/16 08:34 Dose: 40 mg - Procedures Procedures: Procedures Procedure Code Date APPENDECTOMY 09762 01/09/09 LAPAROSCOPIC CHOLECYSTECTOMY 03255 09/21/16 OTHER APPENDECTOMY 47.09 01/09/09 RESECTION OF GALLBLADDER, PERCUTANEOUS ENDOSCOPIC APPROACH [id number] 09/21/16 Assessment/Plan - Problem List Patient Problems: All Active Problems Acute bronchitis (Acute) J20.9 Cough (Acute) R05 Fever (Acute) R50.9
--- NOTE | 2016-09-24 19:26 | Discharge Summary ---
PRINCIPAL DIAGNOSES: 1. Acute abdominal pain secondary to cholelithiasis and chronic cholecystitis, status post laparoscopic cholecystectomy. 2. Postoperative leukocytosis. 3. Postoperative ileus. 4. Vaginal bleeding, workup to be done as an outpatient. 5. Gastritis. BRIEF STATEMENT FOR THE REASON FOR ADMISSION: This is a 36-year-old female with no significant past medical history, presented to Emergency Room for abdominal pain, associated with nausea started after she ate fatty food. The patient was worked up in the Emergency Room, noted to have cholelithiasis and cholecystitis. The patient was admitted. Please refer to my dictated medical H and P for further information. HOSPITAL COURSE: The patient was admitted to med/surg floor. The patient was kept n.p.o., IV fluid, and IV antibiotic. Pain management. GI and General Surgery consultations were requested. Empirically, ____ from any withdrawal was also given. Symptoms management also provided. Abdominal ultrasound was done in the Emergency Room on 09/12/2016, remarkable for multiple gallstones and gallbladder wall thickening associated with common bile duct measuring 5.5 mm. Based on that, the patient was seen by Dr. Mccormick, and the patient was taken to OR and the patient underwent laparoscopic cholecystectomy, which subsequently, the patient was admitted to the hospital. After cholecystectomy, the patient had a postoperative ileus, leukocytosis, and fever. The patient had Infectious Disease consultation also requested from Dr. Shawn Vargas as well. The patient was responding fairly well to the treatment plan, and the patient was placed on clear liquid diet, which was advanced to as tolerated, which the patient tolerated fairly well. Discussion with oncology consultant Dr. Mccormick about the discharge plan since the patient was eating fairly well. The patient can be discharged home with oral antibiotic and low-fat diet for 30 days. The patient was given prescription of Augmentin 875 mg b.i.d. and ibuprofen for the pain. The patient was advised to see ladle patcher in 1 week [address] Dr. Mccormick in 1 week. At the time of discharge, new prescriptions were given. JOB# [id number]
== END 2016-09-23 18:22 | disposition home or self-care (01) | DRG 710 ==
LOC: ER 23:06 → MSI 09-21 01:00
PROVIDERS: ADMIT Internal Medicine; ATTEND Internal Medicine
PROC: 0FT44ZZ Resection of Gallbladder, Percutaneous Endoscopic Approach (ICD-10-PCS; principal; 2016-09-21)
DX: A41.9 Sepsis, unspecified organism (principal); K65.9 Peritonitis, unspecified; K80.00 Calculus of gallbladder with acute cholecystitis without obstruction; K56.7 Ileus, unspecified; E66.9 Obesity, unspecified; Z68.30 Body mass index [BMI] 30.0-30.9, adult; Y92.89 Other specified places as the place of occurrence of the external cause; K29.70 Gastritis, unspecified, without bleeding; N93.9 Abnormal uterine and vaginal bleeding, unspecified; Z90.49 Acquired absence of other specified parts of digestive tract; Z82.49 Family history of ischemic heart disease and other diseases of the circulatory system; Z83.3 Family history of diabetes mellitus
CPT/HCPCS: 36415-UA; 71010-TC; 76705-TC; 80053-TC; 81001-TC; 81025-TC; 82150-TC; 82248-TC; 83605; 83690-TC; 85007-TC; 85025-TC; 85027-TC; 85610-TC; 87070-90; 87075-90; 87205-90; 88304-TC; 90782; 90799; 93005; 96374; 96375; C9113; J0295; J0780; J1170; J1580; J1885; J2250; J2405; J2543; J2704; J2710; J7030; X3904; X6024; X6258; Z7610

== ENCOUNTER 2018-02-05 19:04 | Emergency (ER) | payer MEDICAID, OTHER ==
[2018-02-05 19:51] LABS: % BASOPHILS 0.6 % (0.0-2.0); % LYMPHOCYTES 21.9 % (20.0-50.0); % MONOCYTES 5.6 % (2.0-10.0); % NEUTROPHILS 70.9 % (40.0-80.0); BASOPHILE ABSOLUTE 0.1 Th/cumm (0-0.2); EOSINOPHILE ABSOLUTE 0.1 Th/cmm (0.1-0.4); HEMATOCRIT 35.7 % (41.0-60); HEMOGLOBIN 12.4 gm/dL (12-16); LYMPHOCYTE ABSOLUTE 2.8 Th/cmm (1.5-3.0); MEAN CELL VOLUME 89.5 fl (81-100); MEAN CORPUSCULAR HGB CONC 34.7 pg (28.0-36.0); MEAN PLATELET VOLUME 7.5 fl; MONOCYTE ABSOLUTE 0.7 Th/cmm (0.3-1.0); NEUTROPHILE ABSOLUTE 8.9 Th/cmm (1.8-8.0); PLATELET COUNT 441 Th/cmm (150-400); RED BLOOD COUNT 3.99 Mil/cmm (3.80-5.10); RED CELL DISTRIBUTION WIDTH 12.8 % (11.5-20.0); WHITE BLOOD COUNT 12.6 Th/cmm (4.8-10.8)
[2018-02-05] MEDS ORDERED: Sodium Chloride 0.9% 1,000 ML IV ONE (19:52)
[2018-02-05 20:04] LABS: ALB/GLOB RATIO 1.4 (1.0-1.8); ALBUMIN 4.2 gm/dL (3.7-5.3); ALKALINE PHOSPHATASE 60 U/L (34-104); ANION GAP 10.2 (7.0-16.0); BILIRUBIN,TOTAL 0.4 mg/dL (0.3-1.0); BUN - UREA NITROGEN 10 mg/dL (7-25); CALCIUM SERUM 9.9 mg/dL (8.6-10.3); CARBON DIOXIDE 27.4 mEq/L (21.0-31.0); CHLORIDE 100 mEq/L (98-107); CREATININE - SERUM 0.8 mg/dL (0.6-1.2); GFR AFRICAN-AMERICAN > 60.0 ml/min (>90); GFR NON AFRICAN-AMERICAN > 60.0 ml/min; GLUCOSE 94 mg/dL (70-105); MAGNESIUM 2.2 mg/dL (1.9-2.7); POTASSIUM SERUM 3.6 mEq/L (3.5-5.1); SGOT 43 U/L (13-39); SGPT/ALT 38 U/L (7-52); SODIUM SERUM 134 mEq/L (136-145); TOTAL PROTEIN,SERUM 7.2 gm/dL (6.0-8.3)
[2018-02-05 20:13] LABS: DDIMER QUANT 217 ng/mL (100-400)
[2018-02-05 21:17] LABS: URINE SOURCE CLEAN C
[2018-02-05 21:19] LABS: URINE BILIRUBIN NEGATIVE (NEGATIVE); URINE BLOOD NEGATIVE (NEGATIVE); URINE GLUCOSE (UA) NEGATIVE (NEGATIVE); URINE KETONE NEGATIVE (NEGATIVE); URINE LEUKOCYTE ESTERASE NEGATIVE (NEGATIVE); URINE NITRATE NEGATIVE (NEGATIVE); URINE PROTEIN NEGATIVE (NEGATIVE); URINE UROBILINOGEN 0.2 E.U./dL (0.2 - 1.0)
[2018-02-05 21:24] LABS: URINE CLARITY CLEAR (CLEAR); URINE COLOR YELLOW; URINE MICROSCOPIC INDICATED? YES
[2018-02-05 21:26] LABS: URINE AMORPHOUS SEDIMENT MODERATE PHOSPHATES (NONE SEEN); URINE BACTERIA FEW /hpf (NONE SEEN); URINE EPITHELIAL CELLS MODERATE /lpf (FEW); URINE RBC 0-2 /hpf (0-5); URINE WBC 0-2 /hpf (0-5)
--- NOTE | 2018-02-05 22:39 | ED Physician Chart ---
ED Chief Complaint/HPI - Patient Information Date Seen:: 02/05/18 Time Seen:: 19:15 Chief Complaint:: dizziness and headache History of Present Illness:: dizziness and headache. Patient was in [place] last week and had a miscarriage and d and c at 15 weeks. Has not been told that she is anemic. Said that she bled alot last week after the d and c. Denies abdominal pain, n, v, d and constipation. Allergies:: Allergies Allergy/AdvReac Type Severity Reaction Status Date / Time No Known Allergies Allergy Verified 02/05/18 19:24 Vitals:: Vital Signs - 8 hr 02/05/18 02/05/18 02/05/18 19:15 19:33 19:35 Temp 98.3 F HR 76 63 71 RR 18 21 20 BP 109/72 118/69 112/81 O2 Sat % 99 97 100 02/05/18 19:37 Temp HR 78 RR 16 BP 116/87 O2 Sat % 100 ED Review of Systems - Review of Systems General/Constitutional: No fever, No chills, No weight loss, No weakness, No diaphoresis, No edema, No loss of appetite Skin: No skin lesions, No rash, No bruising Head: Headache, No light-headedness Eyes: No loss of vision, No pain, No diplopia ENT: No earache, No nasal drainage, No sore throat, No tinnitus Neck: No neck pain, No swelling, No thyromegaly, No stiffness, No mass noted Cardio Vascular: No chest pain, No palpitations, No PND, No orthopnea, No edema Pulmonary: No SOB, No cough, No sputum, No wheezing GI: No nausea, No vomiting, No diarrhea, No pain, No melena, No hematochezia, No constipation, No hematemesis G/U: No dysuria, No frequency, No hematuria Musculoskeletal: No bone or joint pain, No back pain, No muscle pain Endocrine: No polyuria, No polydipsia Psychiatric: No prior psych history, No depression, No anxiety, No suicidal ideation Hematopoietic: No bruising, No lymphadenopathy Allergic/Immuno: No urticaria, No angioedema Neurological: No syncope, No focal symptoms, Weakness, No headache, Dizziness, No confusion, No vertigo Family Medical History - Family Member Mother History Unknown: Yes Ethnicity: Living Status: Still Living Hx Family Cancer: No Hx Family Coronary Artery Disease: No Hx Family Congestive Heart Failure: No Hx Family Hypertension: Yes Hx Family Stroke: No Hx Family Diabetes: Yes Hx Family Seizures: No Hx Family Dementia: No Hx Family AIDS: No Hx Family HIV: No Hx Family COPD: No Hx Family Hepatitis: No Hx Family Psychiatric Problems: No Hx Family Tuberculosis: No ED Physical Exam - Physical Examination General/Constitutional: Awake, Well-developed, well-nourished, Alert, No distress, GCS 15, Non-toxic appearing, Ambulatory Head: Atraumatic Eyes: Lids, conjuctiva normal, PERRL, EOMI Skin: Nl inspection, No rash, No skin lesions, No ecchymosis, Well hydrated, No lymphadenopathy ENMT: External ears, nose nl, Nasal exam nl, Lips, teeth, gums nl Neck: Nontender, Full ROM w/o pain, No JVD, No nuchal rigidity, No bruit, No mass, No stridor Respiratory: Nl effort/Exclusion, Clear to Auscultation, No Wheeze/Rhonchi/Rales Cardio Vascular: RRR, No murmur, gallop, rubs, NL S1 S2 GI: No tenderness/rebounding/guarding, No organomegaly, No hernia, Normal BS's, Nondistended, No mass/bruits, No McBurney tenderness : No CVA tenderness Extremities: No tenderness or effusion, Full ROM, normal strength in all extremities, No edema, Normal digits & nails Neuro/Psych: Alert/oriented, DTR's symmetric, Normal sensory exam, Normal motor strength, Judgement/insight normal, Mood normal, Normal gait, No focal deficits Misc: Normal back, No paraspinal tenderness ED Labs/Radiology/EKG Results - Lab Results Results: Laboratory Tests 02/05/18 02/05/18 02/05/18 18:00 19:25 19:25 WBC 12.6 H RBC 3.99 Hgb 12.4 Hct 35.7 L MCV 89.5 MCH 31.0 MCHC Differential 34.7 RDW 12.8 Plt Count 441 H MPV 7.5 Neutrophils % 70.9 Lymphocytes % 21.9 Monocytes % 5.6 Eosinophils % 1.0 Basophils % 0.6 D-Dimer 217 Sodium 134 L Potassium 3.6 Chloride 100 Carbon Dioxide 27.4 Anion Gap 10.2 BUN 10 Creatinine 0.8 Est GFR ( Amer) > 60.0 Est GFR (Non-Af Amer) > 60.0 BUN/Creatinine Ratio 12.5 Glucose 94 Calcium 9.9 Phosphorus 4.0 Magnesium 2.2 Total Bilirubin 0.4 AST 43 H ALT 38 Alkaline Phosphatase 60 Total Protein 7.2 Albumin 4.2 Globulin 3.0 Albumin/Globulin Ratio 1.4 Serum , Qual Urine Source CLEAN C Urine Color YELLOW Urine Clarity CLEAR Urine pH 8.0 Ur Specific [place] 1.015 Urine Protein NEGATIVE Urine Glucose (UA) NEGATIVE Urine Ketones NEGATIVE Urine Blood NEGATIVE Urine Nitrate NEGATIVE Urine Bilirubin NEGATIVE Urine Urobilinogen 0.2 Ur Leukocyte Esterase NEGATIVE Urine RBC 0-2 Urine WBC 0-2 Ur Epithelial Cells MODERATE Amorphous Sediment MODERATE PHOSPHATES Urine Bacteria FEW 02/05/18 20:01 WBC RBC Hgb Hct MCV MCH MCHC Differential RDW Plt Count MPV Neutrophils % Lymphocytes % Monocytes % Eosinophils % Basophils % D-Dimer Sodium Potassium Chloride Carbon Dioxide Anion Gap BUN Creatinine Est GFR ( Amer) Est GFR (Non-Af Amer) BUN/Creatinine Ratio Glucose Calcium Phosphorus Magnesium Total Bilirubin AST ALT Alkaline Phosphatase Total Protein Albumin Globulin Albumin/Globulin Ratio Serum , Qual NEGATIVE Urine Source Urine Color Urine Clarity Urine pH Ur Specific [place] Urine Protein Urine Glucose (UA) Urine Ketones Urine Blood Urine Nitrate Urine Bilirubin Urine Urobilinogen Ur Leukocyte Esterase Urine RBC Urine WBC Ur Epithelial Cells Amorphous Sediment Urine Bacteria ED Assessment - Assessment General Assessment: no evidence of retained products. will give IV fluids and check lab work on her. head CT scan will be performed. ED Septic Shock - . Is Septic Shock (SBP<90, OR Lactate>4 mmol\L) present?: No - <6hrs of presentation: Vital Signs: Vital Signs - 8 hr 02/05/18 02/05/18 02/05/18 19:15 19:33 19:35 Temp 98.3 F HR 76 63 71 RR 18 21 20 BP 109/72 118/69 112/81 O2 Sat % 99 97 100 02/05/18 19:37 Temp HR 78 RR 16 BP 116/87 O2 Sat % 100 ED Reassessment (Disposition) - Reassessment Reassessment Condition:: Improved - Diagnosis Diagnosis:: Headache and dizziness, resolved. No retained products. - Aftercare/Follow up Instructions Aftercare/Follow-Up Instructions:: Refer to Discharge Instructions - Patient Disposition Discharge/Transfer:: Home Condition at Disposition:: Stable, Improved
--- NOTE | 2018-02-06 08:55 | Diagnostic Imaging Report ---
Head CT without intravenous contrast Indication: Headache and visual changes Comparison: None Technique: Axial images were obtained from the vertex to the skull base without IV contrast. Coronal reconstructions were made. Total DLP: 698, [id number] FINDINGS: Images of the brain obtained without contrast demonstrate no acute hemorrhage. No mass lesions identified. The ventricles and basal cisterns are patent. The degroot-white matter differentiation is preserved. There is no mass effect or midline shift. Faint bilateral basal ganglia calcifications are noted. No skull fractures identified. No soft tissue swelling. The paranasal sinuses are clear. IMPRESSION: No acute intracranial abnormality.
--- NOTE | 2018-02-06 09:19 | Diagnostic Imaging Report ---
Ultrasound OB, less than 14 weeks HISTORY: Recent miscarriage. D&C on 01/31/2018 COMPARISON: CT abdomen and pelvis on 09/21/2016 Technique: Longitudinal and transverse sonographic sector images of the pelvis were obtained transabdominally and transvaginally. FINDINGS: Exam is limited due to body habitus. The uterus measures 10.3 x 6.4 x 7.5 cm and demonstrates a heterogeneous echotexture. The endometrial echo complex measures 2.3 cm. No intrauterine gestational sac is identified. The right ovary measures 3.3 x 2.9 cm. The left ovary measures 3.4 x 3.4 cm. Vascular flow to the ovaries is noted. There was suboptimal assessment of the ovaries on this examination. No free fluid identified. IMPRESSION: Thickened endometrial complex measuring 2.3 cm. Please correlate clinically. Given clinical history, retained products of conception cannot be excluded. Follow-up is recommended. No evidence of free fluid in the pelvis. In the presence of a positive test, ectopic gestation should be excluded.
== END 2018-02-05 22:59 | disposition home or self-care (01) ==
LOC: ER 19:04
DX: R42 Dizziness and giddiness (principal); R51 Headache
CPT/HCPCS: 36415-UA; 70450-TC; 76801-TC; 80053-TC; 81001-TC; 83735-TC; 84100-TC; 84703-TC; 85025-TC; 85379-TC

== ENCOUNTER 2018-08-16 20:07 | Emergency (ER) | payer OTHER ==
--- NOTE | 2018-08-16 20:44 | ED Physician Chart ---
ED Chief Complaint/HPI - Patient Information Date Seen:: 08/16/18 Time Seen:: 20:30 Chief Complaint:: left flank pain History of Present Illness:: Patient had onset this morning of periumbilical and left mid abdominal pain at level of the umbilicus with radiation to the left flank. No vomiting. Patient had one-time yellow diarrhea stool last night. No chills, fever, dysuria. She thinks she urinated less than normal today. Patient's most severe pain now is in the left flank. Allergies:: Allergies Allergy/AdvReac Type Severity Reaction Status Date / Time No Known Allergies Allergy Verified 02/05/18 19:24 Vitals:: Vital Signs - 8 hr 08/16/18 20:10 Temp 98.2 F HR 66 RR 17 BP 116/72 O2 Sat % 98 Historian:: Patient Review:: Nurse's Note Reviewed ED Review of Systems - Review of Systems General/Constitutional: No fever, No chills Skin: No skin lesions Head: No headache Eyes: No loss of vision ENT: No earache Neck: No neck pain Cardio Vascular: No chest pain Pulmonary: No SOB GI: No nausea, No vomiting, Diarrhea G/U: No dysuria Musculoskeletal: No bone or joint pain Endocrine: No polyuria Psychiatric: No prior psych history, No depression, No anxiety Hematopoietic: No bruising Allergic/Immuno: No urticaria Neurological: No syncope ED Past Medical History - Past Medical History Past Medical History: No significant medical hx Family History: Diabetes Melitus, HTN Social History: Non Smoker, No Alcohol Surgical History: Appendectomy, Cholecystectomy, Psychiatricy History: None Medication: Reviewed Family Medical History - Family Member Mother History Unknown: Yes Ethnicity: Living Status: Still Living Hx Family Cancer: No Hx Family Coronary Artery Disease: No Hx Family Congestive Heart Failure: No Hx Family Hypertension: Yes Hx Family Stroke: No Hx Family Diabetes: Yes Hx Family Seizures: No Hx Family Dementia: No Hx Family AIDS: No Hx Family HIV: No Hx Family COPD: No Hx Family Hepatitis: No Hx Family Psychiatric Problems: No Hx Family Tuberculosis: No ED Physical Exam - Physical Examination General/Constitutional: Awake, Well-developed, well-nourished, Alert, No distress, GCS 15, Non-toxic appearing, Ambulatory Head: Atraumatic Eyes: Lids, conjuctiva normal, PERRL, EOMI Skin: Nl inspection, No rash, No skin lesions, No ecchymosis, Well hydrated, No lymphadenopathy Other Skin comments:: No paresthesias to light touch ENMT: External ears, nose nl, Nasal exam nl, Lips, teeth, gums nl Neck: Nontender, Full ROM w/o pain, No JVD, No nuchal rigidity, No bruit, No mass, No stridor Respiratory: Nl effort/Exclusion, Clear to Auscultation, No Wheeze/Rhonchi/Rales Cardio Vascular: RRR, No murmur, gallop, rubs, NL S1 S2 GI: No organomegaly, No hernia, Normal BS's, Nondistended, No mass/bruits, No McBurney tenderness Other GI comments:: Periumbilical and left-sided abdominal tenderness at the level of the umbilicus : No CVA tenderness Extremities: No tenderness or effusion, Full ROM, normal strength in all extremities, No edema, Normal digits & nails Neuro/Psych: Alert/oriented, DTR's symmetric, Normal sensory exam, Normal motor strength, Judgement/insight normal, Mood normal, Normal gait, No focal deficits Misc: Normal back, No paraspinal tenderness ED Labs/Radiology/EKG Results - Lab Results Results: Laboratory Results WBC 11.2 Th/cmm (4.8-10.8) H 08/16/18 20:48 RBC 4.68 Mil/cmm (3.80-5.10) 08/16/18 20:48 Hgb 11.3 gm/dL (12-16) L 08/16/18 20:48 Hct 34.8 % (41.0-60) L 08/16/18 20:48 MCV 74.3 fl (81-100) L 08/16/18 20:48 MCH 24.1 pg (27.0-31.0) L 08/16/18 20:48 MCHC Differential 32.5 pg (28.0-36.0) 08/16/18 20:48 RDW 15.9 % (11.5-20.0) 08/16/18 20:48 Plt Count 431 Th/cmm (150-400) H 08/16/18 20:48 MPV 7.4 fl 08/16/18 20:48 Add Manual Diff YES 08/16/18 20:48 Sodium 139 mEq/L (136-145) 08/16/18 20:48 Potassium 3.6 mEq/L (3.5-5.1) 08/16/18 20:48 Chloride 105 mEq/L (98-107) 08/16/18 20:48 Carbon Dioxide 23.6 mEq/L (21.0-31.0) 08/16/18 20:48 Anion Gap 14.0 (7.0-16.0) 08/16/18 20:48 BUN 8 mg/dL (7-25) 08/16/18 20:48 Creatinine 0.7 mg/dL (0.6-1.2) 08/16/18 20:48 Est GFR ( Amer) > 60.0 ml/min (>90) 08/16/18 20:48 Est GFR (Non-Af Amer) > 60.0 ml/min 08/16/18 20:48 BUN/Creatinine Ratio 11.4 08/16/18 20:48 Glucose 89 mg/dL (70-105) 08/16/18 20:48 Calcium 9.0 mg/dL (8.6-10.3) 08/16/18 20:48 Lipase 31 U/L (11-82) 08/16/18 20:48 Urine Source CLEAN C 08/16/18 20:10 Urine Color YELLOW 08/16/18 20:10 Urine Clarity HAZY (CLEAR) 08/16/18 20:10 Urine pH 6.5 (4.6 - 8.0) 08/16/18 20:10 Ur Specific [place] >= 1.030 (1.005-1.030) 08/16/18 20:10 Urine Protein 100 mg/dL (NEGATIVE) H 08/16/18 20:10 Urine Glucose (UA) NEGATIVE mg/dL (NEGATIVE) 08/16/18 20:10 Urine Ketones 15 mg/dL (NEGATIVE) H 08/16/18 20:10 Urine Blood LARGE (NEGATIVE) H 08/16/18 20:10 Urine Nitrate NEGATIVE (NEGATIVE) 08/16/18 20:10 Urine Bilirubin NEGATIVE (NEGATIVE) 08/16/18 20:10 Urine Urobilinogen 1.0 E.U./dL (0.2 - 1.0) 08/16/18 20:10 Ur Leukocyte Esterase NEGATIVE (NEGATIVE) 08/16/18 20:10 Urine RBC 0-2 /hpf (0-5) 08/16/18 20:10 Urine WBC 10-25 /hpf (0-5) H 08/16/18 20:10 Ur Epithelial Cells MANY /lpf (FEW) 08/16/18 20:10 Urine Bacteria MANY /hpf (NONE SEEN) H 08/16/18 20:10 Urine Test NEGATIVE 08/16/18 20:10 ED Assessment - Assessment General Assessment: The urine the patient provided is not a high-quality sample as it has many epithelial cells. However since there are 10-25 WBCs in the urine and patient' s most severe pain is in the left flank a pyelonephritis of the left kidney is the most likely diagnosis. She will be given Levaquin 500 milligrams in the emergency department and prescribed Cipro 500 mg twice a day for 1 week. She was instructed to return if she develops chills and fever or pain increases. She will also to be prescribed ibuprofen 800 mg #16 to take 1 3 times a day. ED Septic Shock - . Is Septic Shock (SBP<90, OR Lactate>4 mmol\L) present?: No - <6hrs of presentation: Vital Signs: Vital Signs - 8 hr 08/16/18 20:10 Temp 98.2 F HR 66 RR 17 BP 116/72 O2 Sat % 98 ED Reassessment (Disposition) - Reassessment Reassessment Condition:: Unchanged - Diagnosis Diagnosis:: Pyelonephritis left kidney - Aftercare/Follow up Instructions Medication Prescribed:: Cipro 500 mg twice a day for 1 week and ibuprofen 800 mg #16 to take 1 3 times a day - Patient Disposition Discharge/Transfer:: Home Condition at Disposition:: Stable, Unchanged
[2018-08-16 20:53] LABS: URINE SOURCE CLEAN C
[2018-08-16 20:54] LABS: URINE BILIRUBIN NEGATIVE (NEGATIVE); URINE BLOOD LARGE (NEGATIVE); URINE GLUCOSE (UA) NEGATIVE (NEGATIVE); URINE KETONE 15 mg/dL (NEGATIVE); URINE LEUKOCYTE ESTERASE NEGATIVE (NEGATIVE); URINE MICROSCOPIC INDICATED? YES; URINE NITRATE NEGATIVE (NEGATIVE); URINE PH 6.5 (4.6 - 8.0); URINE PROTEIN 100 mg/dL (NEGATIVE)
[2018-08-16 20:57] LABS: HEMATOCRIT 34.8 % (41.0-60); HEMOGLOBIN 11.3 gm/dL (12-16); MEAN CELL VOLUME 74.3 fl (81-100); MEAN CORPUSCULAR HEMOGLOBIN 24.1 pg (27.0-31.0); MEAN CORPUSCULAR HGB CONC 32.5 pg (28.0-36.0); MEAN PLATELET VOLUME 7.4 fl; PLATELET COUNT 431 Th/cmm (150-400); RED BLOOD COUNT 4.68 Mil/cmm (3.80-5.10); RED CELL DISTRIBUTION WIDTH 15.9 % (11.5-20.0); WHITE BLOOD COUNT 11.2 Th/cmm (4.8-10.8)
[2018-08-16 21:08] LABS: BUN - UREA NITROGEN 8 mg/dL (7-25); CARBON DIOXIDE 23.6 mEq/L (21.0-31.0); CHLORIDE 105 mEq/L (98-107); CREATININE - SERUM 0.7 mg/dL (0.6-1.2); GFR AFRICAN-AMERICAN > 60.0 ml/min (>90); GFR NON AFRICAN-AMERICAN > 60.0 ml/min; GLUCOSE 89 mg/dL (70-105); LIPASE 31 U/L (11-82); POTASSIUM SERUM 3.6 mEq/L (3.5-5.1); SODIUM SERUM 139 mEq/L (136-145)
[2018-08-16 21:10] LABS: URINE CLARITY HAZY (CLEAR); URINE COLOR YELLOW; URINE RBC 0-2 /hpf (0-5)
[2018-08-16 21:11] LABS: URINE BACTERIA MANY /hpf (NONE SEEN); URINE EPITHELIAL CELLS MANY /lpf (FEW)
[2018-08-16 21:42] LABS: BAND NEUTROPHILE 0 % (0-10); LYMPHOCYTE 27 % (20-50); MONOCYTE 9 % (2-10); NEUTROPHILS 64 % (40-80)
[2018-08-16 21:43] LABS: BASOPHIL 0 % (0-3); EOSINOPHIL 0 % (0-5)
== END 2018-08-16 21:58 | disposition home or self-care (01) ==
LOC: ER 20:07
DX: N12 Tubulo-interstitial nephritis, not specified as acute or chronic (principal); Z90.49 Acquired absence of other specified parts of digestive tract; Z98.890 Other specified postprocedural states
CPT/HCPCS: 99283; 96372; 36415; 85025; 87086; 81001; 81025; 83690; 80048; 85007; J1885; Z7502

== ENCOUNTER 2018-10-21 15:08 | Emergency (ER) | payer OTHER ==
--- NOTE | 2018-10-21 17:48 | ED Physician Chart ---
ED Chief Complaint/HPI - Patient Information Date Seen:: 10/21/18 Time Seen:: 15:40 Chief Complaint:: RT THIGH PAIN History of Present Illness:: 38 YR OLD FEMALE WHO WAS HIKING AND FELL DOWN ON HER RT LEG WITH PAIN RT THIGH NO BRUISING OR DEFORMITY NO OPEN WOUNDS ABLE TO MOVE RT ANKLE KNEE AND HIP Allergies:: Allergies Allergy/AdvReac Type Severity Reaction Status Date / Time No Known Allergies Allergy Verified 10/21/18 15:25 Vitals:: Vital Signs - 8 hr 10/21/18 15:32 Temp 97.8 F HR 86 RR 18 BP 122/78 O2 Sat % 98 ED Review of Systems - Review of Systems General/Constitutional: No fever, No chills, No weight loss, No weakness, No diaphoresis, No edema, No loss of appetite Skin: No skin lesions, No rash, No bruising Head: No headache, No light-headedness Eyes: No loss of vision, No pain, No diplopia ENT: No earache, No nasal drainage, No sore throat, No tinnitus Neck: No neck pain, No swelling, No thyromegaly, No stiffness, No mass noted Cardio Vascular: No chest pain, No palpitations, No PND, No orthopnea, No edema Pulmonary: No SOB, No cough, No sputum, No wheezing GI: No nausea, No vomiting, No diarrhea, No pain, No melena, No hematochezia, No constipation, No hematemesis G/U: No dysuria, No frequency, No hematuria Musculoskeletal: Bone or joint pain (PAIN RT ANTERIOR THIGH NO DEFORMITY) Endocrine: No polyuria, No polydipsia Psychiatric: No prior psych history, No depression, No anxiety, No suicidal ideation Hematopoietic: No bruising, No lymphadenopathy Allergic/Immuno: No urticaria, No angioedema Neurological: No syncope, No focal symptoms, No weakness, No paresthesia, No headache, No seizure, No dizziness, No confusion, No vertigo ED Past Medical History - Past Medical History Past Medical History: No significant medical hx Surgical History: Appendectomy, Cholecystectomy, Family Medical History - Family Member Mother History Unknown: Yes Ethnicity: Living Status: Still Living Hx Family Cancer: No Hx Family Coronary Artery Disease: No Hx Family Congestive Heart Failure: No Hx Family Hypertension: Yes Hx Family Stroke: No Hx Family Diabetes: Yes Hx Family Seizures: No Hx Family Dementia: No Hx Family AIDS: No Hx Family HIV: No Hx Family COPD: No Hx Family Hepatitis: No Hx Family Psychiatric Problems: No Hx Family Tuberculosis: No ED Physical Exam - Physical Examination General/Constitutional: Awake, Well-developed, well-nourished, Alert, No distress, GCS 15, Non-toxic appearing, Ambulatory Head: Atraumatic Eyes: Lids, conjuctiva normal, PERRL, EOMI Skin: Nl inspection, No rash, No skin lesions, No ecchymosis, Well hydrated, No lymphadenopathy ENMT: External ears, nose nl, Nasal exam nl, Lips, teeth, gums nl Neck: Nontender, Full ROM w/o pain, No JVD, No nuchal rigidity, No bruit, No mass, No stridor Respiratory: Nl effort/Exclusion, Clear to Auscultation, No Wheeze/Rhonchi/Rales Cardio Vascular: RRR, No murmur, gallop, rubs, NL S1 S2 GI: No tenderness/rebounding/guarding, No organomegaly, No hernia, Normal BS's, Nondistended, No mass/bruits, No McBurney tenderness : No CVA tenderness Extremities: No tenderness or effusion, Full ROM, normal strength in all extremities, No edema, Normal digits & nails Other Extremities comments:: RT THIGH PAIN R/O SPRAIN VS FX Neuro/Psych: Alert/oriented, DTR's symmetric, Normal sensory exam, Normal motor strength, Judgement/insight normal, Mood normal, Normal gait, No focal deficits Misc: Normal back, No paraspinal tenderness ED Labs/Radiology/EKG Results - Lab Results Results: Laboratory Tests 10/21/18 15:37 POC Ur Test Negative ED Assessment - Assessment General Assessment: RT THIGH SPRAIN S/P FALL ED Septic Shock - . Is Septic Shock (SBP<90, OR Lactate>4 mmol\L) present?: No - <6hrs of presentation: Vital Signs: Vital Signs - 8 hr 10/21/18 15:32 Temp 97.8 F HR 86 RR 18 BP 122/78 O2 Sat % 98 ED Reassessment (Disposition) - Reassessment Reassessment:: RT THIGH SPRAIN - Diagnosis Diagnosis:: RT THIGH SPRAIN - Aftercare/Follow up Instructions Aftercare/Follow-Up Instructions:: Counseled pt regarding lab results/diagnosis & need follow up Notes:: XRAY RT FEMUR RT HIP NO FX OR DISLOCATION - Patient Disposition Discharge/Transfer:: Home Condition at Disposition:: Stable
--- NOTE | 2018-10-22 07:54 | Diagnostic Imaging Report ---
Right hip (3 views) HISTORY: Pain Joint space appears normal. No focal lesions. No fractures. The femoral head exhibits a normal contour. IMPRESSION: No acute bony abnormalities
--- NOTE | 2018-10-22 07:55 | Diagnostic Imaging Report ---
Right femur (2 views) HISTORY: Pain No acute bony amenities. No fractures. No other focal lesions. No abnormal soft tissue calcifications. Small spur formation noted off the anterior superior margin of the patella. IMPRESSION: 1. No acute or focal bony abnormalities
== END 2018-10-21 16:22 | disposition home or self-care (01) ==
LOC: ER 15:08
DX: S73.101A Unspecified sprain of right hip, initial encounter (principal); Z90.49 Acquired absence of other specified parts of digestive tract; Z98.890 Other specified postprocedural states; W18.39XA Other fall on same level, initial encounter; Y93.89 Activity, other specified; Y92.89 Other specified places as the place of occurrence of the external cause; Y99.8 Other external cause status
CPT/HCPCS: 73501; 81025-TC; Z7502

== ENCOUNTER 2019-02-03 20:50 | Emergency (ER) | payer OTHER ==
[2019-02-03] MEDS ORDERED: Sodium Chloride 0.9% 1,000 ML IV ONE ×2 (20:59→23:08)
--- NOTE | 2019-02-03 21:05 | ED Physician Chart ---
ED Chief Complaint/HPI - Patient Information Date Seen:: 02/03/19 Time Seen:: 21:00 Chief Complaint:: abd pain History of Present Illness:: 38 yr old female with llq abd ricyh since yest with back pain thinks it may be a kidney stone or infection no nvd no fever cough or cp Allergies:: Allergies Allergy/AdvReac Type Severity Reaction Status Date / Time No Known Allergies Allergy Verified 02/03/19 20:58 ED Review of Systems - Review of Systems General/Constitutional: No fever, No chills, No weight loss, No weakness, No diaphoresis, No edema, No loss of appetite Skin: No skin lesions, No rash, No bruising Head: No headache, No light-headedness Eyes: No loss of vision, No pain, No diplopia ENT: No earache, No nasal drainage, No sore throat, No tinnitus Neck: No neck pain, No swelling, No thyromegaly, No stiffness, No mass noted Cardio Vascular: No chest pain, No palpitations, No PND, No orthopnea, No edema Pulmonary: No SOB, No cough, No sputum, No wheezing GI: Pain G/U: Other (back pain) Musculoskeletal: No bone or joint pain, No back pain, No muscle pain Endocrine: No polyuria, No polydipsia Psychiatric: No prior psych history, No depression, No anxiety, No suicidal ideation Hematopoietic: No bruising, No lymphadenopathy Allergic/Immuno: No urticaria, No angioedema Neurological: No syncope, No focal symptoms, No weakness, No paresthesia, No headache, No seizure, No dizziness, No confusion, No vertigo ED Past Medical History - Past Medical History Surgical History: Appendectomy Family Medical History - Family Member Mother History Unknown: Yes Ethnicity: Living Status: Still Living Hx Family Cancer: No Hx Family Coronary Artery Disease: No Hx Family Congestive Heart Failure: No Hx Family Hypertension: Yes Hx Family Stroke: No Hx Family Diabetes: Yes Hx Family Seizures: No Hx Family Dementia: No Hx Family AIDS: No Hx Family HIV: No Hx Family COPD: No Hx Family Hepatitis: No Hx Family Psychiatric Problems: No Hx Family Tuberculosis: No ED Physical Exam - Physical Examination General/Constitutional: Awake, Well-developed, well-nourished, Alert, No distress, GCS 15, Non-toxic appearing, Ambulatory Head: Atraumatic Eyes: Lids, conjuctiva normal, PERRL, EOMI Skin: Nl inspection, No rash, No skin lesions, No ecchymosis, Well hydrated, No lymphadenopathy ENMT: External ears, nose nl, Nasal exam nl, Lips, teeth, gums nl Neck: Nontender, Full ROM w/o pain, No JVD, No nuchal rigidity, No bruit, No mass, No stridor Respiratory: Nl effort/Exclusion, Clear to Auscultation, No Wheeze/Rhonchi/Rales Cardio Vascular: RRR, No murmur, gallop, rubs, NL S1 S2 GI: No tenderness/rebounding/guarding, No organomegaly, No hernia, Normal BS's, Nondistended, No mass/bruits, No McBurney tenderness : No CVA tenderness Other comments:: abd pain back pain Extremities: No tenderness or effusion, Full ROM, normal strength in all extremities, No edema, Normal digits & nails Neuro/Psych: Alert/oriented, DTR's symmetric, Normal sensory exam, Normal motor strength, Judgement/insight normal, Mood normal, Normal gait, No focal deficits Misc: Normal back, No paraspinal tenderness ED Assessment - Assessment General Assessment: abd pain back pain ED Septic Shock - . Is Septic Shock (SBP<90, OR Lactate>4 mmol\L) present?: No ED Reassessment (Disposition) - Reassessment Reassessment:: abd back pain - Diagnosis Diagnosis:: as above - Patient Disposition Discharge/Transfer:: Home Condition at Disposition:: Stable
[2019-02-03 21:24] LABS: URINE SOURCE CLEAN C
[2019-02-03 21:31] LABS: HEMATOCRIT 35.2 % (41.0-60); HEMOGLOBIN 11.4 gm/dL (12-16); MEAN CELL VOLUME 76.3 fl (81-100); MEAN CORPUSCULAR HEMOGLOBIN 24.6 pg (27.0-31.0); MEAN CORPUSCULAR HGB CONC 32.3 pg (28.0-36.0); PLATELET COUNT 436 Th/cmm (150-400); RED BLOOD COUNT 4.61 Mil/cmm (3.80-5.10); RED CELL DISTRIBUTION WIDTH 15.2 % (11.5-20.0); WHITE BLOOD COUNT 7.7 Th/cmm (4.8-10.8)
[2019-02-03 21:35] LABS: URINE BILIRUBIN NEGATIVE (NEGATIVE); URINE BLOOD LARGE (NEGATIVE); URINE GLUCOSE (UA) NEGATIVE (NEGATIVE); URINE KETONE NEGATIVE (NEGATIVE); URINE LEUKOCYTE ESTERASE NEGATIVE (NEGATIVE); URINE MICROSCOPIC INDICATED? YES; URINE NITRATE NEGATIVE (NEGATIVE); URINE PH 6.5 (4.6 - 8.0); URINE PROTEIN TRACE mg/dL (NEGATIVE); URINE UROBILINOGEN 0.2 E.U./dL (0.2 - 1.0)
[2019-02-03 21:41] LABS: AMPHETAMINE URINE NEGATIVE (NEGATIVE); BARBITURATES URINE NEGATIVE (NEGATIVE); BENZODIAZEPINES QUAL URINE NEGATIVE (NEGATIVE); CANNABINOID THC NEGATIVE (NEGATIVE); COCAINE METABOLITE QUAL URINE NEGATIVE (NEGATIVE); METHADONE URINE NEGATIVE (NEGATIVE); METHAMPHETAMINES QUAL URINE NEGATIVE (NEGATIVE); OPIATES (MORPHINE) QUAL. URINE NEGATIVE (NEGATIVE); PHENCYCLIDINE (PCP) URINE NEGATIVE (NEGATIVE); TRICYCLICS (TCA) QUAL. URINE NEGATIVE (NEGATIVE)
[2019-02-03 21:47] LABS: URINE CLARITY CLEAR (CLEAR); URINE COLOR YELLOW
[2019-02-03 21:56] LABS: URINE BACTERIA 2+ /hpf (NONE SEEN); URINE EPITHELIAL CELLS FEW /lpf (FEW); URINE WBC 0-2 /hpf (0-5)
[2019-02-03 22:06] LABS: ALB/GLOB RATIO 1.3 (1.0-1.8); ALBUMIN 4.1 gm/dL (3.7-5.3); ALKALINE PHOSPHATASE 43 U/L (34-104); AMYLASE SERUM 59 U/L (29-103); ANION GAP 12.7 (7.0-16.0); BILIRUBIN,TOTAL 0.5 mg/dL (0.3-1.0); BUN - UREA NITROGEN 8 mg/dL (7-25); CALCIUM SERUM 9.3 mg/dL (8.6-10.3); CARBON DIOXIDE 25.6 mEq/L (21.0-31.0); CHLORIDE 103 mEq/L (98-107); CREATININE - SERUM 0.8 mg/dL (0.6-1.2); GFR AFRICAN-AMERICAN > 60.0 ml/min (>90); GFR NON AFRICAN-AMERICAN > 60.0 ml/min; GLUCOSE 110 mg/dL (70-105); LIPASE 22 U/L (11-82); POTASSIUM SERUM 3.3 mEq/L (3.5-5.1); SGOT 9 U/L (13-39); SGPT/ALT 6 U/L (7-52); SODIUM SERUM 138 mEq/L (136-145); TOTAL PROTEIN,SERUM 7.2 gm/dL (6.0-8.3)
[2019-02-03] MEDS ORDERED: cefTRIAXone 1 GM in Sodium Chloride 0.9% 50 ML IV SCH (23:00)
[2019-02-03] MEDS ORDERED: Potassium Chloride 20 mEq ER Tab PO ONE ×2 (23:07→23:11)
[2019-02-03 23:54] LABS: LYMPHOCYTE 30 % (20-50); MONOCYTE 5 % (2-10); NEUTROPHILS 65 % (40-80); PLATELET ESTIMATE INCREASED PLATELETS (NORMAL); PLATELET MORPHOLOGY NORMAL (NORMAL)
--- NOTE | 2019-02-04 07:37 | Diagnostic Imaging Report ---
Exam: CT examination abdomen pelvis. HISTORY: Pain Total DLP equals 513 CTDI equals 10.9 Findings: Multiple views of the section of the abdomen pelvis obtained the planes coronal sagittal reconstruction technique the study was correlated with the prior exam of 09/21/2016 The study demonstrates normal aeration of lung parenchyma the bases The liver and spleen are intact. The pancreas is normal. There is evidence of previous cholecystectomy. The kidneys demonstrate no evidence obstructive uropathy or nephrolithiasis. The uterus prominence with a prominent endometrial canal please correlate clinically. The urinary bladder is intact. IMPRESSION: Prominent uterus with the thickened endometrial canal up to 1 cm.
== END 2019-02-04 00:35 | disposition home or self-care (01) ==
LOC: ER 20:50
DX: R10.32 Left lower quadrant pain (principal); M54.9 Dorsalgia, unspecified; Z90.49 Acquired absence of other specified parts of digestive tract
CPT/HCPCS: 99284; 96365; 96366; 74176; 36415 ×2; 83605 ×2; 80307; 85007; 85025; 87086; 81001; 82150; 81025; 83690; 80053; 87040 ×2; J0696; J7030